=== PATIENT | female | born 1990 | race Two or more races ===

== ENCOUNTER 2020-12-20 10:49 | Observation (INO) | payer OTHER, SELFPAY ==
[2020-12-20] VITALS (7 sets, daily range): BP systolic 101–114; BP diastolic 67–76; PULSE 120–137; RESP 18; TEMP 37.6; O2SAT 96
--- NOTE | ~2020-12-20 | US_ITS ---
US OB limited 12/20/2020 12:23 Indication: [place] discharge. Evaluate placenta and amniotic fluid index. Procedure: Real-time Limited obstetrical ultrasound Comparison: No prior studies for comparison. Findings: There is a single living intrauterine in vertex presentation. heart rate is 155 BPM. Placenta is fundal without previa. The placenta is grossly normal, without suggestion of pl acenta abruption. However, ultrasound is not diagnostic of abruption since acute hemorrhage can be i soechoic to be placenta. Recommend clinical correlation. Amniotic fluid index is normal measuring 14 .8 cm. Impression: 1: Single living intrauterine in vertex presentation. 2: Fundal placenta without previa. No placental abnormality identified. 3: Normal MAGALIS measures 14.8 cm. Reviewed, dictated and finalized at location A. Impression: 1: Single living intrauterine in vertex presentation. 2: Fundal placenta without previa. No placental abnormality identified. 3: Normal MAGALIS measures 14.8 cm.
[2020-12-20 13:22] LABS: Add Urine Microscopic? YES; Appearance Urine Cloudy (Clear); Bacteria Urine Trace /hpf; Bilirubin Urine 1+ (Negative); Blood Urine 1+ (Negative); Color Urine Amber (Yellow); Glucose Urine UA Negative (Negative); Ketones Urine Trace mg/dL (Negative); Leukocyte Esterase Ur 3+ LEU/UL (NEGATIVE); Mucus Urine Rare /lpf; Nitrate Urine Negative (Negative); Protein Urine 2+ mg/dL (Negative); RBC Urine 21-50 /hpf (0-2); Squamous Epithelial Cell Urine Many /hpf (Few); WBC Urine 16-20 /hpf (0-3)
[2020-12-20 14:40] LABS: Specific Grav Ur 1.033 (1.001-1.035)
--- NOTE | 2020-12-24 11:41 | PM.OBTRLD ---
OB - Triage/Final Diagnosis Visit Information Comments/Additional reasons for admission: I have assessed the risk for this patient, Jarad Scherer, and determined that she would benefit from observation care. Evaluation Laboratory results: Laboratory Tests 12/20/20 13:05 Urine Color Karen Urine Appearance Cloudy H Urine pH 6.0 Ur Specific [place] 1.033 Urine Protein 2+ H Urine Glucose (UA) Negative Urine Ketones Trace Ur Blood (Man) 1+ H Urine Nitrate Negative Urine Bilirubin 1+ H Urine Urobilinogen 4.0 H Ur Leukocyte Esterase 3+ H Urine RBC 21-50 H Urine WBC 16-20 H Ur Squamous Epith Cells Many H Urine Bacteria Trace Urine Mucus Rare
--- NOTE | 2020-12-27 07:34 | PM.OBTRLD ---
OB - Triage/Final Diagnosis Visit Information Date of evaluation: 12/20/20 Reason for evaluation: threatened labor Comments/Additional reasons for admission: I have assessed the risk for this patient, Jarad Scherer, and determined that she would benefit from observation care. Evaluation Laboratory results: Laboratory Tests 12/20/20 13:05 Urine Color Karen Urine Appearance Cloudy H Urine pH 6.0 Ur Specific [place] 1.033 Urine Protein 2+ H Urine Glucose (UA) Negative Urine Ketones Trace Ur Blood (Man) 1+ H Urine Nitrate Negative Urine Bilirubin 1+ H Urine Urobilinogen 4.0 H Ur Leukocyte Esterase 3+ H Urine RBC 21-50 H Urine WBC 16-20 H Ur Squamous Epith Cells Many H Urine Bacteria Trace Urine Mucus Rare
== END 2020-12-20 13:08 | disposition home or self-care (01) ==
PROVIDERS: Advanced Practice Midwife; Admitting Provider Obstetrics & Gynecology; PCP Family Medicine; Visit Provider Obstetrics & Gynecology
DX: O47.03 False labor before 37 completed weeks of gestation, third trimester (principal); Z3A.33 33 weeks gestation of pregnancy
CPT/HCPCS: 76815; 81001; 87086; 87088; G0378; G0379

== ENCOUNTER 2020-12-21 13:13 | Observation (INO) | payer OTHER, SELFPAY ==
[2020-12-21] VITALS (10 sets, daily range): BP systolic 97–137; BP diastolic 49–84; PULSE 109–129; RESP 20–38; TEMP 36.9–38.7; O2SAT 94–96; BMI 29.8
--- NOTE | ~2020-12-21 | XR_ITS ---
EXAMINATION: XR chest 1V portable INDICATION: Cough, COVID 19 positive TECHNIQUE: Portable AP chest at 1350 hours COMPARISON: 12/18/2008 FINDINGS: There are patchy opacities of the mid and lower lung zones. No pleural effusion or pneumoth orax is identified. The cardiomediastinal silhouette is normal. The visualized osseous structures are unremarkable. IMPRESSION: 1. Patchy opacities of the mid and lower lung zones, likely COVID 19 pneumonia. Reviewed, dictated and finalized at location A.
--- NOTE | 2020-12-21 13:39 | ECG_ITS ---
Measurements Intervals [place] Rate: 116 P: 26 MT: 126 QRS: 42 QRSD: 76 T: 14 QT: 315 QTc: 439 Interpretive Statements SINUS TACHYCARDIA MINIMAL Q WAVES- INFERIOR LEADS BORDERLINE T WAVE ABNORMALITY- ANT/INF LEADS BASELINE ARTIFACT- II, V3-V6 ABNORMAL ECG Electronically Signed On 12-21-2020 14:24:09 CDT by Nazario Juarez D.O.
--- NOTE | 2020-12-21 13:42 | ED.URI ---
HPI - URI/Sore Throat General Chief Complaint: Upper Respiratory Infection Stated Complaint: COVID + Time Seen by Provider: 12/21/20 13:23 Source: patient and RN notes reviewed Mode of arrival: ambulatory Limitations: no limitations History of Present Illness HPI Narrative: This is a 30 year old female 34 week GA who presents for evaluation of worsening cough due to COVID. Patient states she developed a cough 8 days ago so she took an at home test that was positive. On Wednesday she had a PCR test at [facility] that was positive. She has continued to have cough with fever. She denies having a fever today but she reports her cough is worsening. She states her cough is making it difficult to talk and breath. She denies chest pain, nausea, vomiting, abdominal pain or vaginal bleeding. she does report mild diarrhea. Related Data Home Medications Medication Instructions Recorded Confirmed vit no.[id number] 1 tablet PO DAILY 12/21/20 12/21/20 [Classic ] Allergies Allergy/AdvReac Type Severity Reaction Status Date / Time No Known Allergies Allergy Mild Verified 02/12/12 14:55 Review of Systems Review of Systems: All systems reviewed & are unremarkable except as noted in HPI and below Constitutional: Constitutional: Reports fatigue and Reports fever(s) ENT: Denies sore throat Cardiovascular: Cardiovascular: Denies chest pain Respiratory: Respiratory: Reports cough and Denies wheezing Gastrointestinal: Gastrointestinal: Denies abdominal pain, Reports diarrhea, Denies nausea and Denies vomiting Neurologic: Denies headache(s) [facility] Past Medical History Medical History (Updated 12/21/20 @ 23:41 by Maira Gutierrez MD) Patient denies medical problems Social History Social History Smoking status: Never smoker Alcohol intake: never Substance use: never Substance use type: does not use Spiritual care concerns: No Exam Const: General: no acute distress and alert Orientation/consciousness: patient oriented x3 Eyes: EOM: EOMs intact bilaterally Chest: Chest palpation & inspection: normal inspection of the chest Resp: Effort & Inspection: no retractions, tachypneic and no use of accessory muscles Auscultation: clear to auscultation bilaterally Cardio: Rate: tachycardic Rhythm: regular rhythm Heart sounds: no murmurs GI: GI Palp: Yes Soft to palpation, No Tenderness to palpation present (GI) and No Guarding due to palpation present (GI) Auscultation: normal bowel sounds Other: gravid Back/Spine/Pelvis: Back: no CVA tenderness Skin: General skin exam: normal color Rashes: no rashes Neuro: General: patient oriented x3, moves all extremities and CN's II-XI intact bilaterally Extrem: General: normal to inspection Psych: Mental Status: mental status grossly normal Affect: normal affect Course Reevaluation(s) Reevaluation #1: I discussed with patient plan to observe in hospital. She appears to have moderate case of COVID pneumonia. She is not requiring oxygen at this time but will monitor overnight. heart tones obtained by nursing Date: 12/21/20 Time: 15:45 Consultations Consultation #1: I discussed case with Dr. Solano . he agrees to admit patient for observation to monitor patient and fetus with covid pneumonia. He request hospitalist consult to assist with pneumonia. Date: 12/21/20 Time: 15:15 Consultation #2: I discussed case with Sruthi Olivares who agrees to consult. Date: 12/21/20 Time: 15:50 Vital Signs Vital signs: Vital Signs Temperature 98.7 F 12/21/20 13:16 Pulse Rate 129 H 12/21/20 13:16 Respiratory Rate 26 H 12/21/20 13:16 Blood Pressure 117/72 12/21/20 13:16 Pulse Oximetry 95 12/21/20 13:16 Temperature 99.2 F 12/21/20 20:00 Pulse Rate 109 H 12/21/20 20:00 Respiratory Rate 20 12/21/20 20:00 Blood Pressure 97/49 L 12/21/20 20:00 Pulse Oximetry 95 12/21/20 20:00 MDM - URI/Sore Throat Medical
[2020-12-21] MEDS: ALBUTEROL SULFATE (*SP) AEROSOL 1 PUFF 2 PUFF INHALATION (14:04)
[2020-12-21 14:22] LABS: Alveolar/Arterial O2 Gradient 46.9 mmHg; Base Excess ABG -3.8 mEq/l (+/-2.0); Carboxyhemoglobin 0.3 % THb (0-2.0); Fractional Inspired Oxygen 21 %; HCO3 ABG 18.6 mEq/l (22.0-26.0); Methemoglobin ABG 0.1 %THb (0-1.5); Oxygen Content ABG 16.6 %vol (16.0-22.0); Oxygen Saturation ABG 95.5 % (95.0-100.0); PCO2 ABG 26.4 mmHg (35.0-45.0); PO2 ABG 71.2 mmHg (80.0-100.0); PO2 FiO2 Ratio Arterial Blood 3.39 %; Reduced Hemoglobin 5.6 %THb (0-5.0); Total Hemoglobin 12.5 g/dL (12.0-18.0); pH ABG 7.465 (7.350-7.450)
[2020-12-21 14:23] LABS: Device ROOM AIR; Modified Allen's Test Pass; Site Drawn LEFT RADIAL
[2020-12-21 14:25] LABS: Hematocrit 36.9 % (37.0-47.0); Hemoglobin 12.2 g/dL (12.0-15.0); Mean Corpuscular HGB Conc 33.1 g/dl (32-36); Mean Corpuscular Hemoglobin 30.1 pg (26-34); Mean Corpuscular Volume 91.1 fl (80-100); Mean Platelet Volume 10.4 fl (7.4-10.4); Platelet Count Result 153 k/mm3 (150-375); Red Blood Count 4.05 M/mm3 (4.2-5.4); Red Cell Distribution Width 15.8 % (11.5-14.5); White Blood Count 8.4 K/mm3 (4.5-10.0)
[2020-12-21] MEDS: SODIUM CHLORIDE 0.9% IV 1,000 ML 999 ML IV CONT (14:25)
[2020-12-21 14:33] LABS: INR 0.8; Prothrombin Time 11.3 Seconds (11.1-14.7)
[2020-12-21 14:34] LABS: Partial Thromboplastin Time 32.9 SECONDS (22.3-36.8)
[2020-12-21 14:46] LABS: Band Neutrophils Percent 12 % (0-6); Lymphocytes Absolute Manual 1.42 K/mm3 (1.1-4.5); Monocytes Absolute Manual 0.33 K/mm3 (0.1-0.90); Monocytes Percent Manual 4 % (3-9); Neutrophils Absolute Manual 6.63 K/mm3 (1.7-7.2); Neutrophils Percent Manual 67 % (46-73); Total Cells Counted 100
[2020-12-21 14:47] LABS: Anisocytosis 2+ (NORMAL); Platelet Estimate Adequate (Adequate)
[2020-12-21 15:02] LABS: Alanine Aminotransferase 80 U/L (4-35); Albumin Level 3.2 g/dL (3.5-5.1); Alkaline Phosphatase 156 U/L (38-126); Anion Gap 10 mmol/L (8-16); Aspartate Amino Transferase 83 U/L (14-36); Bilirubin,Total 0.9 mg/dL (0.2-1.3); Blood Urea Nitrogen 3 mg/dL (7-17); Calcium 8.5 mg/dL (8.4-10.2); Carbon Dioxide 18 mmol/L (22-30); Chloride 106 mmol/L (98-107); Estimated CRCL calculation 160 ml/min; Estimated Glomerular Filt Rate > 60; Glucose 114 mg/dL (65-110); Potassium 3.7 mmol/L (3.4-5.0); Sodium 134 mmol/L (137-145)
[2020-12-21 15:19] LABS: CRP 5.9 mg/dL (<1.0)
[2020-12-21 15:36] LABS: Add Urine Microscopic? YES; Appearance Urine Cloudy (Clear); Bacteria Urine Trace /hpf; Bilirubin Urine Negative (Negative); Blood Urine 1+ (Negative); Color Urine Yellow (Yellow); Glucose Urine UA Negative (Negative); Ketones Urine 1+ mg/dL (Negative); Leukocyte Esterase Ur 3+ LEU/UL (Negative); Nitrate Urine Negative (Negative); Protein Urine 1+ mg/dL (Negative); Specific Grav Ur 1.009 (1.001-1.035); Squamous Epithelial Cell Urine Many /hpf (Few); Urobilinogen Urine Negative mg/dL (<2.0); WBC Urine 51-75 /hpf
--- NOTE | 2020-12-21 18:33 | ADMGEN ---
This patient, Jarad Scherer, was admitted to [address] [place] [address] Room 320-01 at 1755. Patient/family oriented to hospital policies and general routines including ID bracelet, bed and alarms, visiting hours, pain management, procedures, bathroom and other care routines, personal items, smoking policy, room service/diet, and visiting hours. Information on how to activate the Rapid Response Team has been discussed. Patient/Family are encouraged to report perceived risks to care and to ask questions if they do not understand what they are told or what they should do.
[2020-12-21] MEDS: SODIUM CHLORIDE 0.9% IV 1,000 ML 125 ML IV CONT (18:59)
[2020-12-21] MEDS: ACETAMINOPHEN 500 MG TABLET 1000 MG PO (19:00)
--- NOTE | 2020-12-21 19:30 | WPDCN ---
Assessment and Plan Assessment and plan (1) Pneumonia due to COVID-19 virus: Code(s): U07.1 - COVID-19; J12.82 - Pneumonia due to coronavirus disease 2018 Status: Acute (2) COVID-19 affecting in third trimester: Code(s): O98.513 - Other viral diseases complicating , third trimester; U07.1 - COVID-19 Status: Acute (3) Urinary tract infection affecting : Code(s): O23.40 - Unspecified infection of urinary tract in , unspecified trimester Status: Acute Additional Plan Chest x-ray shows findings compatible with COVID pneumonia. She is 96% on room air though was placed on 2 L for comfort. As such she does not meet criteria for dexamethasone or remdesivir at this time. Continue with supportive care including albuterol MDI, analgesics, and antiemetics as needed. She does have an abnormal urinalysis and has been started on ceftriaxone, pending urine culture. As she does have an increase in bands on her CBC, will check procalcitonin level and add azithromycin to cover for possible community-acquired pneumonia as well. Trend inflammatory markers. Case discussed with Dr. Solano at bedside. Thank you for allowing us to participate in this patient's care. Please do not hesitate to contact us with any questions. Supervising physician for this medical consultation is Dr. Warren Brasher. HPI Data of Consult Date/Time: 12/21/20 19:30 Requesting Physician: Bahman Solano MD Primary Care Provider: Ciera Cosby MD Consult Narrative Narrative: This is a previously healthy 30-year-old female whom the hospitalist service has been consulted for advice regarding treatment of COVID-19 pneumonia. She is 3 para 1011 at 34 weeks gestation and has had a fairly uneventful . On 12/13/2020 she developed a dry cough and she tested positive for COVID-19 by PCR test at [facility] the following day. The patient was not vaccinated for COVID however all members of her household have been vaccinated and she does not work outside of the home. Unfortunately 1 of her family members had a breakthrough case and that is how she was exposed. In any regard, she continues to have an ongoing cough which is occasionally productive of clear sputum as well as daily fevers to just shy of 102?. Her cough has been worse over the past couple of days and she has since developed increasing shortness of breath. She was seen yesterday at the [facility] and reports that everything checked out fine with the baby. She continues to feel poorly and came in for evaluation today where she was found to have patchy infiltrates in the mid and lower lung zones likely due to COVID-19 pneumonia. Her urinalysis was also abnormal though she denies urinary symptoms. Her SpO2 was 96% on room air at the time my evaluation however the nursing staff placed her on 2 L for comfort as not long prior to my arrival to the room she spiked temperature in became increasingly tachypneic and tachycardic though her vital signs have improved after receiving IV Tylenol. She denies chest pain, pleuritic pain, lower extremity edema, calf pain, and history of venous thromboembolism. Her appetite has been poor and she has had nausea but no vomiting or diarrhea. Review of Systems Review of Systems: Twelve systems were reviewed with pertinent positives and negatives as per HPI. Except as documented, all other systems were reviewed and are negative. [facility]LY [facility] Past Medical History Medical History (Updated 12/22/20 @ 01:24 by Sruthi Olivares PA-C) Patient denies medical problems Surgical History Surgical History (Updated 12/22/20 @ 01:19 by Sruthi Olivares PA-C) History of dilation and curettage (2018) Family History Family History (Updated 12/22/20 @ 01:19 by Sruthi Olivares PA-C) Other No significant family history Social
--- NOTE | 2020-12-21 19:45 | PM.IMHP ---
H&P: HPI History of Present Illness Date/Time: 12/21/20 19:45 this patient is a 30-year-old 3 para 1011 at 34 weeks and 0 days gestation. She presented emergency department with shortness of breath. She was known to be COVID positive. She called earlier in the day short of breath. She was asked to go to the emergency department immediately. At the emergency department she was stable but quite sick. the recommended admission. Who admitted for observation. She did not meet any criteria for any interventions. She did have a pneumonia on chest x-ray. she denies any contractions, loss of fluid, vaginal bleeding. She reports good movement. Chief Complaint: Shortness of breath Review of Systems Review of Systems: All systems reviewed & are unremarkable except as noted in HPI and below Respiratory: Respiratory: Reports cough, Reports dyspnea and Reports dyspnea on exertion PMFSH Past Medical History Medical History (Updated 12/21/20 @ 19:55 by Bahman Solano MD) Patient denies medical problems Social History Social History Smoking status: Never smoker Alcohol intake: never Substance use: never Substance use type: does not use Spiritual care concerns: No Meds Home Medications and Allergies Home Medications Medication Instructions Recorded Confirmed Type vit no.[id number] 1 tablet PO DAILY 12/21/20 12/21/20 History [Classic ] Allergies Allergy/AdvReac Type Severity Reaction Status Date / Time No Known Allergies Allergy Mild Verified 02/12/12 14:55 Vital Signs Vital Signs - 24 hr 12/21/20 13:16 12/21/20 14:07 12/21/20 14:15 Temperature 98.7 F Pulse Rate 129 H 123 H 120 H Respiratory Rate 26 H 28 H 32 H Blood Pressure 117/72 124/68 Pulse Oximetry 95 96 96 12/21/20 14:46 12/21/20 16:08 12/21/20 17:12 Temperature 98.4 F Pulse Rate 118 H 124 H 123 H Respiratory Rate 35 H 38 H 22 H Blood Pressure 110/64 119/76 118/84 Pulse Oximetry 96 96 94 12/21/20 17:44 12/21/20 18:08 12/21/20 19:00 Temperature 101.7 F H 101.4 F H Pulse Rate 121 H 126 H Respiratory Rate 32 H 26 H Blood Pressure 137/84 100/65 Pulse Oximetry 96 96 Exam Const: General: healthy appearing, comfortable and no acute distress Resp: Effort & Inspection: labored Auscultation: rales, rhonchi, wheezes and diminished lung sounds Cardio: Rate: regular rate Heart sounds: no click, no murmurs and no rubs GI: Inspection: non-distended Auscultation: normal bowel sounds Extrem: General: normal to inspection, no pedal edema and no calf tenderness H&P: Results Labs Labs: Short CBC 12/21/20 Range/Units 14:13 WBC 8.4 (4.5-10.0) K/mm3 Hgb 12.2 (12.0-15.0) g/dL Hct 36.9 L (37.0-47.0) % Plt Count 153 (150-375) k/mm3 BMP 12/21/20 14:13 Sodium 134 L Potassium 3.7 Chloride 106 Carbon Dioxide 18 L BUN 3 L Creatinine 0.40 L Glucose 114 H Calcium 8.5 Liver Function 12/21/20 Range/Units 14:13 Total Bilirubin 0.9 (0.2-1.3) mg/dL AST 83 H (14-36) U/L ALT 80 H (4-35) U/L Alkaline Phosphatase 156 H (38-126) U/L Albumin 3.2 L (3.5-5.1) g/dL Urine 12/21/20 Range/Units 14:12 Urine Color Yellow (Yellow) Urine Appearance Cloudy H (Clear) Urine pH 7.0 (5.0-9.0) Ur Specific [place] 1.009 (1.001-1.035) Urine Protein 1+ H (Negative) mg/dL Urine Glucose (UA) Negative (Negative) mg/dL Assessment and Plan Assessment and plan (1) COVID-19 affecting in third trimester: Code(s): O98.513 - Other viral diseases complicating , third trimester; U07.1 - COVID-19 Status: Acute (2) Dyspnea: Code(s): R06.00 - Dyspnea, unspecified Status: Acute (3) Viral pneumonia: Code(s): J12.9 - Viral pneumonia, unspecified Status: Acute Additional Plan This patient is a 30-year-old 3 para 1011 at 34 weeks gestation with a severe COVID
[2020-12-22] VITALS (7 sets, daily range): BP systolic 100–117; BP diastolic 52–74; PULSE 108–127; RESP 20–22; TEMP 36.2–37.3; O2SAT 94–96
[2020-12-22] MEDS: ACETAMINOPHEN 500 MG TABLET 1000 MG PO (02:59)
[2020-12-22] MEDS: SODIUM CHLORIDE 0.9% IV 1,000 ML 125 ML IV CONT (03:00)
[2020-12-22] MEDS: MULTIVIT/MIN/PREN/FOL AC/IRON TABLET 1 TAB PO (09:12)
--- NOTE | 2020-12-22 10:16 | WPDHPUPDATE1 ---
History and Physical Update Update Date/Time: 12/22/20 10:16 VSS NST reactive No contractions Awaiting hospitalist update History and Physical has been reviewed, including an updated exam of the patient. There are NO changes in the patient's condition. Risks, benefits, and alternatives have been discussed and questions answered. Patient agrees to proceed with procedure.
--- NOTE | 2020-12-22 10:33 | PM.IMPN ---
Progress Note: A&P Assessment and Plan (1) Pneumonia due to COVID-19 virus: Code(s): U07.1 - COVID-19; J12.82 - Pneumonia due to coronavirus disease 2018 Status: Acute (2) COVID-19 affecting in third trimester: Code(s): O98.513 - Other viral diseases complicating , third trimester; U07.1 - COVID-19 Status: Acute (3) Urinary tract infection affecting : Code(s): O23.40 - Unspecified infection of urinary tract in , unspecified trimester Status: Acute Additional Plan Chest x-ray shows findings compatible with COVID pneumonia. She is 94% on room air today. CRP 5.9. Hdjh8ln acid 1. Patient is currently being treated for urinary tract infection. Also receiving rocephin /zithromax out of concern for bacterial superinfection. Given advanced stage of , with now viable fetus, and possibility of acute deterioration posing a risk to maternal and well- being, including a risk of if she carries a delta variant, we suggest transfer to a high risk center. We willcontinue to co-manage patient as long as she remains in our facility. Consideration for dexamethasone if any deterioration of respiratory status, and ID consultation if patient is expected to remain in house. Subjective Date/time seen: 12/22/20 10:33 This is a previously healthy 30-year-old female admitted for COVID-19 pneumonia. She is 3 para 1 at 34 weeks gestation and has had a fairly uneventful . On 12/13/2020 she developed a dry cough . She was placed on 2 L, later spiking a fever and becoming increasingly tachypneic and tachycardic though her vital signs have improved after receiving IV Tylenol. She denies chest pain, pleuritic pain, lower extremity edema, calf pain, and history of venous thromboembolism. Her appetite has been poor and she has had nausea but no vomiting or diarrhea. She has had a FST today. Review of Systems Review of Systems: All systems reviewed & are unremarkable except as noted in HPI and below Exam Narrative: General: Moderately ill-appearing female sitting up in bed. Weight: 74 kg. BMI: 29.8. She is very anxious. HEENT: PERRL, EOMI. Sclerae anicteric. Tacky mucous membranes. Oropharynx clear. Neck: Supple. No adenopathy or JVD. Respiratory: Breathing comfortably on room air; no crackles or wheezing. Cardiovascular: Tachycardic with S1-S2. Gastrointestinal: Abdomen is firm with uterus above the umbilicus. Nontender. Positive bowel sounds. Skin: Warm and dry. No rash or lesions on limited exam. Extremities: No cyanosis, clubbing, or edema. Radial and pedal pulses intact. Negative Sonja sign bilaterally. Neurological: Alert. Cranial nerves 2-12 grossly intact. No gross focal deficits to casual conversation. Psychiatric: Pleasant and cooperative with normal mood and affect. Judgment and insight intact. Objective Data Vital Signs Vital Signs: Vital Signs - 24 hr 12/21/20 13:16 12/21/20 14:07 12/21/20 14:15 Temperature 98.7 F Pulse Rate 129 H 123 H 120 H Respiratory Rate 26 H 28 H 32 H Blood Pressure 117/72 124/68 Blood Pressure [Right Arm] Pulse Oximetry 95 96 96 12/21/20 14:46 12/21/20 16:08 12/21/20 17:12 Temperature 98.4 F Pulse Rate 118 H 124 H 123 H Respiratory Rate 35 H 38 H 22 H Blood Pressure 110/64 119/76 118/84 Blood Pressure [Right Arm] Pulse Oximetry 96 96 94 12/21/20 17:44 12/21/20 18:08 12/21/20 19:00 Temperature 101.7 F H 101.4 F H Pulse Rate 121 H 126 H Respiratory Rate 32 H 26 H Blood Pressure 137/84 100/65 Blood Pressure [Right Arm] Pulse Oximetry 96 96 12/21/20 20:00 12/22/20 00:00 12/22/20 02:59 Temperature 99.2 F 98.2 F 99.2 F Pulse Rate 109 H 108 H Respiratory Rate 20 20 Blood Pressure 97/49 L 100/58 L Blood Pressure [Right Arm] Pulse Oximetry 95 96 12/22/20 03:55 12/22/20 04:00 12/22/20 08:00 Temperature 99.0 F 99.0 F 97.2
--- NOTE | 2020-12-22 15:00 | PC.NURSE ---
Per Dr. Larry, patient is being transferred to an outside facility for a higher level of care. Report called to CLARIBEL Brandon at [facility] at 1225. OB MD Dr. Solano updated. Patient's brother updated per patient request prior to departure and at departure.
--- NOTE | 2021-02-02 19:00 | PM.TDS ---
Transfer Discharge Sum: Prov Provider Date of admission: 12/21/20 15:41 Primary care physician: Ciera Cosby MD Admitting clinician: Bahman Solano MD Attending physician on admission: Bahman Solano Consults: 12/21/20 Consult to Physician Routine Comment: Consulting Provider: Warren Brasher Reason for consultation: COVID pneumonia Has provider been notified: Yes Attending physician on discharge: Bahman Solano DS: Admitting Diagnosis Discharge Date 12/22/20 dyspnea, Admitting Diagnosis Dyspnea DS: Discharge Diagnosis Discharge Diagnosis (1) COVID-19 affecting in third trimester: Code(s): O98.513 - Other viral diseases complicating , third trimester; U07.1 - COVID-19 Status: Acute (2) Dyspnea: Code(s): R06.00 - Dyspnea, unspecified Status: Acute Transfer Discharge Sum: Med Medications Active and Home Medications: Home Medications Classic 1 tablet PO DAILY 12/21/20 [History Confirmed 12/21/20] Transfer Discharge Sum: Hosp Hospital Course Hospital course: Jarad Scherer is a 31 year old female 1 at approximately 26 weeks gestation who presented to the emergency department with shortness of breath and elevated body temperature. She was evaluated in the emergency department. She was then admitted. She was very ill and known to be COVID positive. Internal Medicine was contacted immediately. She was managed by internal medicine. Her respiratory distress was striking. Given that she was and the worry of worsening course , she was transferred to [facility] very quickly. She was admitted only for short period of time. Perhaps 4-5 hours in the hospital. Time Spent with Patient Time attestation: Total time spent providing and/or coordinating transfer services:
== END 2020-12-22 15:00 | disposition short-term general hospital (02) ==
LOC: ANHED 13:28 → ANH3MEDSUR 17:32
PROVIDERS: Admitting Provider Obstetrics & Gynecology; Emergency Provider General Practice; PCP Family Medicine; Visit Provider Obstetrics & Gynecology
DX: O98.513 Other viral diseases complicating pregnancy, third trimester (principal); U07.1 COVID-19; O99.513 Diseases of the respiratory system complicating pregnancy, third trimester; J12.82 Pneumonia due to coronavirus disease 2019; Z3A.34 34 weeks gestation of pregnancy; O23.43 Unspecified infection of urinary tract in pregnancy, third trimester
CPT/HCPCS: 36415; 36600; 59025; 71045; 80053; 81001; 82375; 82805; 83050; 83605; 85025; 85610; 85730; 86140; 87040; 87070; 87086; 87088; 87205; 93005; 96361; 96365; 96366; 96375; 99285; A9270; G0378; G0379; J0456; J0696; J7030

== ENCOUNTER 2021-01-13 06:17 | Inpatient (IN) | payer OTHER, SELFPAY ==
[2021-01-13] VITALS (89 sets, daily range): BP systolic 71–118; BP diastolic 26–102; PULSE 82–141; RESP 16–18; TEMP 36–37.1; O2SAT 96–100; BMI 31.4
[2021-01-13 07:00] LABS: Basophils Percent Auto 0.3 % (0.2-1.2); Eosinophils Absolute Auto 0.1 K/mm3 (0-0.3); Eosinophils Percent Auto 0.6 % (0-4.4); Hematocrit 37.7 % (37.0-47.0); Hemoglobin 12.6 g/dL (12.0-15.0); Immature Granulocyte Absolute 0.13 K/mm3 (0.00-0.031); Immature Granulocyte Percent A 1.2 % (0-0.5); Lymphocytes Absolute Auto 2.09 K/mm3 (0.9-3.2); Lymphocytes Percent Auto 19.4 % (18.3-44.2); Mean Corpuscular HGB Conc 33.4 g/dl (32-36); Mean Corpuscular Hemoglobin 30.5 pg (26-34); Mean Corpuscular Volume 91.3 fl (80-100); Mean Platelet Volume 11.1 fl (7.4-10.4); Monocytes Absolute Auto 0.5 K/mm3 (0.1-0.6); Monocytes Percent Auto 4.2 % (2.6-8.5); Neutrophils Percent Auto 74.3 % (45.5-73.1); Platelet Count Result 145 k/mm3 (150-375); Red Blood Count 4.13 M/mm3 (4.2-5.4); Red Cell Distribution Width 15.9 % (11.5-14.5); White Blood Count 10.8 K/mm3 (4.5-10.0)
[2021-01-13] MEDS: LACTATED RINGERS 1,000 ML 125 ML IV CONT ×3 (07:07→09:45)
[2021-01-13] MEDS: AMPICILLIN 2 GM/NS 100 ML 2 GM/100 ML BAG IVPB (07:08)
--- NOTE | 2021-01-13 07:13 | LDADM ---
This patient, Jarad Scherer, was admitted to Labor/Delivery/Recovery 106 on 01/13/21 at 06:17. Plans for labor, pain management and were discussed with patient. Patient/family oriented to hospital policies and general routines including ID bracelet, bed and alarms, visiting hours, pain management, procedures, bathroom and other care routines, personal items, smoking policy, room service/diet and guest tray routines, infant security routines, and visiting hours. Patient/Family are encouraged to report perceived risks to care and to ask questions if they do not understand what they are told or what they should do. See OBIX for further documentation.
--- NOTE | 2021-01-13 07:32 | WPDOBADMIT ---
Obstetrics - Admit Note Admission Note: record reviewed. No pertinent additions to the history and/or any subsequent changes in the physical findings that are not consistent with the expected course of the were found. Additions to the history and/or subsequent changes in the physical findings follow. multip with SROM, complicated by moderate COVID pneumonia, hospitalized for 9 days. Just transferred back to us after this. GBS done at [facility] and not received yet. Ctx q 6-8 min. FHT category 1. SVE 6-7/80/posterior. Pitocin if no change in 1-2 hours.
--- NOTE | 2021-01-13 09:03 | WPDANESEPP ---
Anes - Eval Pre Procedure Procedure: labor Epidural Date/Time: 01/13/21 09:03 Surgeon: Billy Preop Diagnosis: labor Pain Pre Op Diagnosis: Labor Patient Data Age: 31 Gender: F Height: 1.55 m Weight: 75.5 kg Allergies Allergy/AdvReac Type Severity Reaction Status Date / Time No Known Allergies Allergy Mild Verified 01/10/21 12:36 Home Medications Medication Instructions Recorded Confirmed Type vit no.[id number] 1 tablet PO DAILY 12/21/20 12/21/20 History [Classic ] Laboratory Tests 01/13/21 01/13/21 01/13/21 06:54 06:54 06:54 WBC 10.8 K/mm3 H K/mm3 (4.5-10.0) RBC 4.13 M/mm3 L M/mm3 (4.2-5.4) Hgb 12.6 g/dL g/dL (12.0-15.0) Hct 37.7 % % (37.0-47.0) MCV 91.3 fl fl (80-100) MCH 30.5 pg pg (26-34) MCHC 33.4 g/dl g/dl (32-36) RDW 15.9 % H % (11.5-14.5) Plt Count 145 k/mm3 L k/mm3 (150-375) MPV 11.1 fl H fl (7.4-10.4) Immature Gran % (Auto) 1.2 % H % (0-0.5) Neut % (Auto) 74.3 % H % (45.5-73.1) Lymph % (Auto) 19.4 % % (18.3-44.2) [place] % (Auto) 4.2 % % (2.6-8.5) Eos % (Auto) 0.6 % % (0-4.4) Baso % (Auto) 0.3 % % (0.2-1.2) Lymph # (Auto) 2.09 K/mm3 K/mm3 (0.9-3.2) [place] # (Auto) 0.5 K/mm3 K/mm3 (0.1-0.6) Eos # (Auto) 0.1 K/mm3 K/mm3 (0-0.3) Baso # (Auto) 0.0 K/mm3 K/mm3 (0.0-0.1) Abs Immat Gran (auto) 0.13 K/mm3 H K/mm3 (0.00-0.031) Absolute Neuts (auto) 8.0 K/mm3 H K/mm3 (1.3-6.7) Absolute Nucleated RBC 0.0 K/mm3 K/mm3 (0.0-0.012) Nucleated RBC % 0.0 % % (0.0-0.2) RPR Pending Blood Type A Positive Antibody Screen Negative : gestational age (JIMI 02/01/21) Patient hx anesthesia problems: none Family hx anesthesia problems: none Results Review: All pre-operative results and documents have been reviewed as part of the pre-operative evaluation. [facility] Past Medical History Medical History Patient denies medical problems Surgical History Surgical History History of dilation and curettage (2018) Family History Family History Grandparent Diabetes mellitus Alzheimer disease Social History Social History Social History: Surrogate decision maker: Kellee Scherer, mother. Code status: Full code. Smoking status: Never smoker Alcohol intake: never Substance use: never Substance use type: does not use Additional living arrangements comments: The patient lives with her family in [place]. She has a young son at home and is expecting a daughter. Additional occupation/education comments: School counselor. Spiritual care concerns: No Exam Day of Procedure 01/13/21 09:03 Patient weight: normal Heart: regular rate and rhythm Lungs: normal air movement Airway: Mallampati scale class II Neurological: alert and oriented
[2021-01-13] MEDS: PHENYLEPHRINE 1,000 MCG/10 ML SYRINGE 100 MCG IV PUSH ×2 (09:50→10:49)
--- NOTE | 2021-01-13 13:05 | P.PCNOB_ITS ---
OB - Delivery Note Procedure Delivery date: 01/13/21 Procedure: Delivery monitor: external FHT and external uterine Route of delivery: Laceration Description: Perineal - 2nd Degree Delivery repair: vicryl Specimen: No Quantitative Blood Loss (ml): 200 Anesthesia type: Epidural Disposition: floor Narrative: With adequate expulsive efforts by the mother, the baby's head was delivered OA. The baby's anterior shoulder was delivered under the pubic symphysis without difficulty. The posterior shoulder and the rest of the baby delivered without difficulty. The infant was placed on the mothers chest and suctioned and stimulated. The cord was clamped and cut after 30 seconds. Mother and baby both stable. [place] Baby Date of : 01/13/21 Time of : 12:39 Weeks of gestation at delivery: 37 gender: Female Weight (pounds): 7 Weight (ounces): 12 presentation: vertex Placenta delivery description: Spontaneous cord vessel description: 3 Vessels and Delayed Cord Clamping score one minute: 8 score five minutes: 9
--- NOTE | 2021-01-13 16:10 | PC.NURSE ---
Patient transferred to post room #283 per wheelchair from labor and delivery. Support person present. Oriented to unit, room, information board, rooming in, admission packet and security measures. Patient verbalizes understanding.
[2021-01-13] MEDS: OXYTOCIN 30 UNITS/NS 500 ML 30 UNITS/500 ML BAG 125 UNITS IV CONT (17:01)
[2021-01-13] MEDS: DOCUSATE SODIUM 100 MG CAPSULE PO (19:49)
[2021-01-13] MEDS: IBUPROFEN 600 MG TABLET PO (22:46)
[2021-01-13] MEDS: ACETAMINOPHEN 325 MG TABLET 650 MG PO (23:38)
[2021-01-14] VITALS: BP 101/64; PULSE 87; RESP 16; TEMP 36.8; O2SAT 98
[2021-01-14 04:00] VITALS: BP 101/58; PULSE 88; RESP 16; TEMP 36.8; O2SAT 98
[2021-01-14 06:00] LABS: Hematocrit 34.8 % (37.0-47.0); Hemoglobin 11.2 g/dL (12.0-15.0)
--- NOTE | 2021-01-14 06:21 | P.PNOB_ITS ---
OB - PN: Subj Subjective Date/time seen: 01/14/21 06:21 [place] baby status: doing well and nursing well feeding status: exclusively breast feeding Narrative: Doing well. NOrmal lochia. COmplains of right groin pain, helped with ibuprofen. Mood good. OB - PN: Obj Data Labs CBC & Chem 7: 01/14/21 04:12 Labs: Laboratory Results - last 24 hr 01/13/21 01/13/21 01/14/21 06:54 06:54 04:12 WBC 10.8 H RBC 4.13 L Hgb 12.6 11.2 L Hct 37.7 34.8 L MCV 91.3 MCH 30.5 MCHC 33.4 RDW 15.9 H Plt Count 145 L MPV 11.1 H Immature Gran % (Auto) 1.2 H Neut % (Auto) 74.3 H Lymph % (Auto) 19.4 [place] % (Auto) 4.2 Eos % (Auto) 0.6 Baso % (Auto) 0.3 Lymph # (Auto) 2.09 [place] # (Auto) 0.5 Eos # (Auto) 0.1 Baso # (Auto) 0.0 Abs Immat Gran (auto) 0.13 H Absolute Neuts (auto) 8.0 H Absolute Nucleated RBC 0.0 Nucleated RBC % 0.0 Blood Type A Positive Antibody Screen Negative OB - PN A/P Plan day: 1 Plan: routine care Time Spent With Patient Time: Total time spent is greater than 50% in coordination of care (as docume nted) at patient's floor/unit and/or counseling patient: Time with patient: less than 15 minutes Exam Narrative: NAD abdomen soft, nontender, fundus firm below the umbilicus Extremities nontender, 1+ edema
[2021-01-14 07:30] LABS: Rapid Plasma Reagin Non-Reactive (NonReactive)
[2021-01-14 07:50] VITALS: BP 99/58; PULSE 89; RESP 16; TEMP 36.5; O2SAT 98
--- NOTE | 2021-01-14 08:30 | PC.NURSE ---
PT introductions made and plan of care discussed per post , pain management, breast feeding, daily care activities. PT and spouse both recipients of such instructions and show no barriers to learning. PT received instructions and educations per shift via one to one discussion, mom baby care guide and demonstrations. PAT verbalized understanding of such care.
[2021-01-14] MEDS: ACETAMINOPHEN 325 MG TABLET 650 MG PO ×2 (11:50→18:28)
--- NOTE | 2021-01-14 11:50 | PC.NURSE ---
Mother called out for assist with feeding. Mother states she was unable to breastfeed first child, infant would not latch. Mother has had some tenderness with feeding, which she feels is improving with deep latch. Infant is able to freely thrust tongue past gum ridge and flange both lips. Skin is intact on both nipples, no redness and bruising noted. Reviewed feeding cues, frequencies, duration of feedings, feeding elimination flow sheet, and signs of adequate intake. Demonstrated stimulation techniques to wake infant for feeding. Assisted with to breast. Reviewed positioning/alignment in cross cradle, holding breast in ?U? hold and guided asymmetrical latch on. Reviewed rational for each. able to latch correctly within a few attempts. Infant nursed eagerly with steady draws and occasional swallowing noted, some pausing noted. Reviewed signs of a correct latch, effective nursing and suck swallow ratio. Suggested mother stimulate while feeding to increase stimulate, increase intake and to assist with maintaining deep latch. Infant was able to maintain latch without discomfort to mother. Demonstrated how to adjust latch more deeply while feeding if needed. Nipple care reviewed of lanolin after feedings, warm compresses as needed. Instructed mother to call out for RN assistance if she is unable to latch infant for feeding or she has discomfort with nursing. Instructed feeding should be initiated three hours from start of last feeding or if feeding cues are noted before. Mother voiced understanding of information shared.
[2021-01-14] MEDS: IBUPROFEN 600 MG TABLET PO ×2 (11:51→18:28)
[2021-01-14] MEDS: DOCUSATE SODIUM 100 MG CAPSULE PO ×2 (11:51→18:29)
[2021-01-14 11:52] VITALS: PULSE 89; RESP 16; O2SAT 98
[2021-01-14] MEDS: MULTIVIT/MIN/PREN/FOL AC/IRON TABLET 1 TAB PO (11:52)
[2021-01-14] MEDS: LANOLIN (LANSINOH) 7.5 GM CREAM 1 APPLIC TOPICAL (11:52)
[2021-01-14 12:15] VITALS: BP 115/63; PULSE 99; RESP 16; TEMP 36.8; O2SAT 98
--- NOTE | 2021-01-14 14:15 | PC.NURSE ---
Mother called out for questions with . Mother reports she is feeding on demand, infant will feed up to 20 minutes per breast and continue to root. Mother questions if she should offer formula after . Reviewed newborns will freq root and need to suckle. Suggested mother offer a washed finger or a pacifier and remove once infant is calm. Mother states she supplement if needed. Pacifier and formula to room per mother's request.
--- NOTE | 2021-01-14 15:13 | WPDANLDPN2 ---
Anes-Prog Note L&D Date/Time: 01/14/21 15:13 Comfortable throughout: labor and delivery Neuraxial method: epidural Epidural/Spinal procedure site: tender Neuro status: Neuro function grossly intact. Cardiovascular status: normal Respiratory status: normal Airway patency: baseline Mental status: baseline Post-Op hydration status: normal Vital Signs: Last Vital Signs Temp 98.2 F 01/14/21 12:15 Pulse 99 01/14/21 12:15 Resp 16 01/14/21 12:15 BP 115/63 01/14/21 12:15 Pulse Ox 98 01/14/21 12:15 Pain score (VAS): 0 Post-procedural complaints: none Patient feedback: Patient satisfied with anesthetic care.
[2021-01-14 20:00] VITALS: BP 112/76; PULSE 84; RESP 16; TEMP 36.5; O2SAT 99
[2021-01-15] MEDS: ACETAMINOPHEN 325 MG TABLET 650 MG PO ×2 (00:03→09:10)
[2021-01-15] MEDS: IBUPROFEN 600 MG TABLET PO ×2 (00:03→09:09)
--- NOTE | 2021-01-15 07:43 | PM.OBPNVD ---
OB - PN: Subj Subjective Date/time seen: 01/15/21 07:43 Patient comments: no complaints baby status: doing well and nursing well [place] feeding status: exclusively breast feeding Narrative: Doing great, plans to go home today. OB - PN: Obj Data Labs CBC & Chem 7: 01/14/21 04:12 OB - PN A/P Plan day: 2 Plan: routine care and discharge home Comments: DC instructions given. Time Spent With Patient Time: Total time spent is greater than 50% in coordination of care (as documented) at patient's floor/unit and/or counseling patient: Time with patient: less than 15 minutes Exam Narrative: NAD abdomen soft, nontender, fundus firm below the umbilicus Extremities nontender, 1+ edema
--- NOTE | 2021-01-15 07:47 | PM.DS ---
DS: Admitting Diagnosis Discharge Date 01/15/21 Admitting Diagnosis labor at term DS: Discharge Diagnosis Discharge Diagnosis (1) , delivered: Code(s): O80 - Encounter for full-term uncomplicated delivery Status: Acute DS: Summary Hospital Course Hospital Course: Pt had an uncomplicated vaginal delivery and pp course. Time Spent with Patient Time attestation: Total time spent providing and/or coordinating discharge services: Exam Narrative: NAD abdomen soft, appropriately tender Ext non tender, 1+ edema Discharge Plan Discharge Attending physician on discharge: Maylni Cervantes Discharging Clinician: Maylin Cervantes Anticipated Discharge Date/Time: 01/15/21 07:45 Patient Disposition: Home, Self-Care Activity: may shower and pelvic rest Diet: as tolerated Discharge Instructions: Education: Mom and Baby Guide Given to: Mother Follow-Up: Call your delivering provider's office for an appointment to be seen in: 4 Weeks Mom and baby should come to the [facility] for the follow-up appointment. Appointment Date/Time: January 16, 2021 at 10:00 am What to expect at your follow-up visit: Blood Pressure Check Call [phone] if you are unable to keep your appointment time. BREAST CARE: * Wear a snug supportive bra. * For engorgement discomfort: Breast Feeding: * Apply warm moist washcloths * Express milk as needed to relieve engorgement * Wear loose clothing Bottle Feeding: * May apply ice packs * For sore nipples: * Identify correct latch-on * Apply warm moist washcloths before and after nursing * Air dry nipples after nursing * May apply Lansinoh cream to nipples PERINEAL CARE: * Until bleeding stops, use your bebe bottle after urinating * Change your pad frequently throughout the day * You may take sitz baths several times a day (fill your bathtub with warm water and soak for 20 minutes.) Do NOT bathe in the water * No tub baths until seen by your physician - You may shower ACTIVITY: * Rest as much as possible. * Do not exercise or lift anything heavier than your baby (such as laundry or other children.) * Avoid stairs or driving as much as possible. * Do not put anything into the vagina. No douching, tampons, or sexual activity until seen by physician. NOTIFY PHYSICIAN IF YOU HAVE ANY QUESTIONS OR IF ANY OF THE FOLLOWING SYMPTOMS OCCUR: * If your perineum becomes red, swollen, or more painful than what you have experienced in the hospital. * If your vaginal bleeding becomes foul smelling. * If your vaginal bleeding becomes more heavy than a period or if your bleeding changes from pink to bright red. However, you may pass an occasional walnut-sized clot once or twice for the first week . * If you experience a sharp, shooting pain in you calves. * If you discover a hard, reddened area on your breast or if you experience flu-like symptoms. * If you have a fever of 100.4 or greater DIET: * Eat regular, well-balanced meals. * Drink plenty of fluids daily. If , drink to thirst. Patient Instructions: Antibiotic Form Stand Alone Forms: General Discharge Information Follow-up/Referrals: Maylin Cervantes MD [Physician] - 4 Weeks Discharge Medications: Continued Classic 28 mg iron- 800 mcg Tablet 1 tablet PO DAILY RF: 0 Date of admission: 01/13/21 06:17 Primary Care Provider: Jj,Brenda Roman Admitting Provider: Maylin Cervantes Attending physician on admission: Maylin Cervantes Condition: Stable
--- NOTE | 2021-01-15 08:00 | PC.NURSE ---
PT introductions made and plan of care discussed per post pain management, breast/bottle feeding, daily care activities and pending discharge to home. PT and spouse both received during this shift instructions and care via one to one discussion, demonstrations and mom baby care guide. PT show no barriers to learning and verbalized understanding of such care.
[2021-01-15 08:25] VITALS: BP 117/72; PULSE 93; RESP 18; TEMP 36.4; O2SAT 99
--- NOTE | 2021-01-15 08:30 | PC.NURSE ---
Mother is able to independently latch with appropriate positioning/alignment. She denies any nipple discomfort, is feeding as required and waking infant to feed if needed. Infant will be supplemented due to weight loss. Infant has several effective feedings followed in the past 24 hours, and is currently meeting outcomes for output,jaundice and feeding frequencies. Infant is more awake and eager to feed today. will continue to require supplementation for near weight loss. Reviewed is eagerly, discussed establishing in the near infant may be more difficult due to their immaturity, may be less alert, have less stamina, and have greater difficulty with latch, suck, and swallow. ?s feeding may impact mother?s milk supply, pumping may need to be continued until milk supply is well established and infant is able to effective without supplementation. Mother will initiate pumping once home to assist with stimulation of milk supply. Mother states she feels confident to continue current feeding plan at home. Mother has her own double electric pump for home use. Discussed increasing supplementation as infant requires to satisfactions. Reviewed paced feeding and suggested to stop when is satisfied, as long as infant is having required output. With increased supplementation may not want to feed for 4 hours. Mother will continue to pump on infant feeding schedule and will increase session to 20 minutes if pumping every 4 hours. Reviewed once mother?s milk is established and infant is effectively feeding, infant may have increased intake with nursing. If is effective feeding with long draws and frequent swallowing noted, infant may be ready to decrease/discontinue supplementation. Advised not to discontinue supplement until ICP, Follow-Up RN or LC has a pre/post weighted evaluation of infant feeding. Discussed nipple shield weaning techniques Reviewed transition to breast milk, signs of adequate intake, and engorgement/relief. Instructed to call ICP if intake/output less than required. Reviewed regular medications mother is taking. Information provided per [employer]. Reviewed community resources on the [employer] website and in the Mom/Baby guide. Information on outpatient services provided. Mother has no further questions at this time.
[2021-01-15] MEDS: MULTIVIT/MIN/PREN/FOL AC/IRON TABLET 1 TAB PO (09:09)
[2021-01-15 09:10] VITALS: PULSE 93; RESP 18; O2SAT 99
[2021-01-15] MEDS: DOCUSATE SODIUM 100 MG CAPSULE PO (09:10)
--- NOTE | 2021-01-15 11:00 | PC.NURSE ---
PT received discharge instructions per protocol and verbalized understanding of such care.
--- NOTE | 2021-01-15 12:00 | PC.NURSE ---
PT discharged to home via wheelchair accompanied by spouse and and taken to waiting car. Follow up appts confirmed
[2021-01-16 10:10] VITALS: BP 107/71; PULSE 87; RESP 20; TEMP 36.5; O2SAT 99
== END 2021-01-15 12:00 | disposition home or self-care (01) | DRG 560 ==
LOC: ANHLDR 06:43 → ANHOB2 16:12
PROVIDERS: Admitting Provider Obstetrics & Gynecology; PCP Family Medicine Sports Medicine; Visit Provider Obstetrics & Gynecology
DX: O76 Abnormality in fetal heart rate and rhythm complicating labor and delivery (principal); O70.1 Second degree perineal laceration during delivery; Z3A.37 37 weeks gestation of pregnancy; Z37.0 Single live birth
CPT/HCPCS: 36415; 85014; 85018; 85025; 86592; 86850; 86900; 86901; A9270; J0290; J2370; J2590; J2795; J7120